=== PATIENT | female | born 1950 | race Caucasian/White ===

== ENCOUNTER → 2017-12-27 | Outpatient (CLI) | payer OTHER ==
[~2017-12-27] MED LIST: ASCO100019 PO; ASPI-496 PO; CALC-126 PO; CHOL200024 PO; CYAN1TAB52 PO; FERR325T18 PO; FISH1CAP PO; FLUT1DIS3 INH; LEVO100T PO; LISI1TAB3 PO; MULT-758 PO; NAPR220C2 PO; OMEP-110 PO; SIMV20TA3 PO; TIOT18CA INH; VITA400C43 PO; [UNRECOGNIZED DRUG - OTHER] INH
[2017-12-27 15:16] LABS: MICROSCOPIC AUTO
[2017-12-27 15:20] LABS: CULTURE INDICATED? YES
[2017-12-27 15:23] LABS: ALANINE AMINOTRANSFERASE 36 U/L (12-78); ALBUMIN 3.9 g/dL (3.4-5.0); ANION GAP 8 mmol/L (5-15); CALCIUM 9.3 mg/dL (8.5-10.1); CHLORIDE 104 mmol/L (98-107); CREATININE 0.94 mg/dL (0.55-1.02)
[2017-12-27 15:26] LABS: ALKALINE PHOSPHATASE 99 U/L (45-117); BILIRUBIN,TOTAL 0.5 mg/dL (0.2-1.0); TOTAL PROTEIN 7.5 g/dL (6.4-8.2)
[2017-12-27 15:27] LABS: BASOPHILS # (AUTO) 0.02 x10^3/uL (0-0.1); BASOPHILS % (AUTO) 0 % (0-1); EOSINOPHILS # (AUTO) 0.11 x10^3/uL (0-0.4); EOSINOPHILS % (AUTO) 2 % (1-7); LYMPHOCYTES # (AUTO) 1.92 x10^3/uL (1-3.4); LYMPHOCYTES % (AUTO) 30 % (22-44); MD NO; MEAN CORPUSCULAR HEMOGLOBIN 32.2 pg (27.0-34.8); MEAN CORPUSCULAR HGB CONC 33.7 g/dL (32.4-35.8); MEAN CORPUSCULAR VOLUME 95.4 fL (80-100); MEAN PLATELET VOLUME 8.3 fL (7.4-10.4); MONOCYTES # (AUTO) 0.37 x10^3/uL (0.2-0.8); MONOCYTES % (AUTO) 6 % (2-9); NEUTROPHILS # (AUTO) 3.91 x10^3/uL (1.8-6.8); NEUTROPHILS % (AUTO) 62 % (42-75); PLATELET COUNT 257 x10^3/uL (130-400); RED BLOOD COUNT 4.54 x10^6/uL (3.82-5.3); RED CELL DISTRIBUTION WIDTH 12.3 % (9.6-15.2)
== END | disposition home or self-care (01) ==
LOC: STAR 13:55
PROVIDERS: ATTEND Orthopaedic Surgery
DX: Z01.818 Encounter for other preprocedural examination (principal); M17.12 Unilateral primary osteoarthritis, left knee
CPT/HCPCS: 36415; 80053; 81001; 85025; 87081; 87086; 87147; 93005

== ENCOUNTER 2017-12-28 08:30 | Inpatient (IN) | payer OTHER ==
[~2017-12-28] VITALS: Ht 170.2 cm; Wt 107.3 kg
[2018-01-04] MEDS ORDERED: ROPIvacaine/PF 0.2%, 20 ML ONE ×2 (07:57→09:46)
[2018-01-04] MEDS ORDERED: NEOSTIGMINE 1 MG/ML, 10ML ONE (07:57)
[2018-01-04] MEDS ORDERED: FENTANYL PF 250 MCG/5ML ONE (07:57)
[2018-01-04] MEDS ORDERED: MIDAZOLAM 1 MG/ML, 2ML ONE (07:57)
[2018-01-04] MEDS ORDERED: CEFAZOLIN 1,000 MG ONE (07:57)
[2018-01-04] MEDS ORDERED: ROCURONIUM 10MG/ML,5ML ONE (07:57)
[2018-01-04] MEDS ORDERED: PROPOFOL 10 MG/ML, 20ML ONE (07:57)
[2018-01-04] MEDS ORDERED: DEXAMETHASONE 4 MG/ML, 1ML ONE (07:57)
[2018-01-04] MEDS ORDERED: GLYCOPYRROLATE 0.2MG/1ML, 5ML ONE (07:57)
[2018-01-04] MEDS ORDERED: ONDANSETRON 2MG/ML, 2ML ONE (07:57)
[2018-01-04] MEDS ORDERED: LACTATED RINGERS 1,000 ML IV SCH (08:36)
[2018-01-04 08:37] VITALS: BP 127/80
[2018-01-04] MEDS ORDERED: GABAPENTIN 300 MG CAPSULE PO ONE (09:00)
[2018-01-04] MEDS ORDERED: ACETAMINOPHEN 500 MG TABLET PO ONE (09:00)
[2018-01-04] MEDS ORDERED: morphine SULFATE/PF 1 MG/ML, 10ML ONE (09:46)
[2018-01-04] MEDS ORDERED: KETOROLAC 60 MG/2 ML ONE (09:46)
[2018-01-04] MEDS ORDERED: TRANEXAMIC ACID 100 MG/ML, 10ML ONE (09:46)
[2018-01-04] MEDS ORDERED: EPINEPHRINE 1 MG/ML, 1ML ONE (09:46)
[2018-01-04] MEDS ORDERED: FENTANYL PF 100 MCG/2ML IV PRN (10:00)
[2018-01-04] MEDS ORDERED: ONDANSETRON 2MG/ML, 2ML IV PRN (10:00)
[2018-01-04] MEDS ORDERED: ALBUTEROL/IPRATROPIUM 2.5MG/0.5MG, 3 ML NPPB PRN (10:00)
[2018-01-04] MEDS ORDERED: PROMETHAZINE 25 MG/ML, 1ML IM PRN ×2 (10:00)
[2018-01-04] MEDS ORDERED: HYDROmorphone 1 MG/ML, 1ML IV PRN (10:00)
[2018-01-04] MEDS ORDERED: ONDANSETRON ODT 8 MG PO PRN (10:00)
[2018-01-04] MEDS ORDERED: PROMETHAZINE 25 MG/ML, 1ML IV PRN (10:00)
[2018-01-04] MEDS ORDERED: MORPHINE SULFATE 4 MG/ML, 1ML IVPush PRN (10:00)
[2018-01-04] MEDS ORDERED: hydrALAzine 20 MG/ML, 1ML IV PRN (10:00)
[2018-01-04] MEDS ORDERED: PROMETHAZINE 12.5 MG SUPP PR PRN (10:00)
[2018-01-04] MEDS ORDERED: PROMETHAZINE 25 MG SUPP PR PRN (10:00)
[2018-01-04] MEDS ORDERED: MEPERIDINE/PF 25MG/0.5ML IVPush PRN (10:00)
[2018-01-04] MEDS ORDERED: OXYcodone 5 MG/5 ML ORAL.SOL UDC PO PRN (10:00)
[2018-01-04] MEDS ORDERED: ALBUTEROL SULFATE 2.5 MG/3 ML NPPB PRN (10:00)
[2018-01-04] MEDS ORDERED: LABETALOL 5MG/ML, 20ML IV PRN (10:00)
[2018-01-04] MEDS ORDERED: OXYcodone 5 MG/5 ML ORAL.SOL UDC ONE (12:35)
[2018-01-04 13:05] VITALS: BP 122/85
[2018-01-04] MEDS ORDERED: BISACODYL 10 MG SUPP PR PRN (13:30)
[2018-01-04] MEDS ORDERED: ALUMINUM/MAG/SIMETHICONE 30 ML UDC PO PRN (13:30)
[2018-01-04] MEDS ORDERED: SENNA/DOCUSATE TABLET PO PRN (13:30)
[2018-01-04] MEDS ORDERED: ZOLPIDEM 5MG TABLET PO PRN (13:30)
[2018-01-04] MEDS ORDERED: DIPHENHYDRAMINE 25 MG CAPSULE PO PRN (13:30)
[2018-01-04] MEDS ORDERED: ONDANSETRON 2MG/ML, 2ML IVPush PRN (13:30)
[2018-01-04] MEDS ORDERED: HYDROcodone/APAP 7.5-325MG/15ML UDC PO PRN (13:30)
[2018-01-04] MEDS ORDERED: MAGNESIUM HYDROXIDE 8%, 30ML UDC PO PRN (13:30)
[2018-01-04] MEDS: POTASSIUM CHLORIDE 10 MEQ in D5%-0.45% NACL 1,000 ML IV SCH (13:58)
[2018-01-04] MEDS: CEFAZOLIN PMX 1GM/50ML 50 ML IVPB SCH (17:55)
[2018-01-04 19:38] VITALS: BP 111/73
[2018-01-04] MEDS: DOCUSATE 100 MG CAPSULE PO SCH (20:13)
[2018-01-04] MEDS: LISINOPRIL 10 MG TABLET PO SCH (20:13)
[2018-01-04] MEDS: OXYcodone IR 5MG TABLET PO PRN (20:13)
[2018-01-04] MEDS: HYDROCHLOROTHIAZIDE 12.5 MG CAPSULE PO SCH (20:13)
[2018-01-04] MEDS: ACETAMINOPHEN 325 MG TABLET PO PRN (20:14)
[2018-01-05 00:09] VITALS: BP 102/68
[2018-01-05] MEDS: CEFAZOLIN PMX 1GM/50ML 50 ML IVPB SCH (02:26)
[2018-01-05 05:11] VITALS: BP 97/66
[2018-01-05] MEDS: OXYcodone IR 5MG TABLET PO PRN ×2 (05:40→12:06)
[2018-01-05] MEDS: ACETAMINOPHEN 325 MG TABLET PO PRN (05:40)
[2018-01-05] MEDS ORDERED: ENOXAPARIN 30 MG/0.3 ML SQ SCH (06:00)
[2018-01-05] MEDS ORDERED: LEVOTHYROXINE 100 MCG TABLET PO SCH (06:00)
[2018-01-05] MEDS ORDERED: OMEPRAZOLE 20 MG CAPSULE.DR PO SCH (06:00)
[2018-01-05 07:44] VITALS: BP 104/68
[2018-01-05] MEDS ORDERED: MULTIVITAMINS/MINERALS TABLET PO SCH (09:00)
[2018-01-05] MEDS: DOCUSATE 100 MG CAPSULE PO SCH (09:03)
[2018-01-05] MEDS: HYDROCHLOROTHIAZIDE 12.5 MG CAPSULE PO SCH (09:03)
[2018-01-05] MEDS: LISINOPRIL 10 MG TABLET PO SCH (09:03)
[2018-01-05] MEDS: POTASSIUM CHLORIDE 10 MEQ in D5%-0.45% NACL 1,000 ML IV SCH (09:04)
[2018-01-05 12:00] VITALS: BP 110/70
[2018-01-05] MEDS ORDERED: OXYC-307 PO (12:55)
[2018-01-05] MEDS ORDERED: KETOROLAC 30 MG/1 ML IV SCH (13:30)
== END 2018-01-05 13:30 | disposition home or self-care (01) | DRG 470 ==
LOC: ORIP 01-04 07:51 → 4NOR 01-04 13:00 → DCLOUNGE 01-05 13:17
PROVIDERS: ADMIT Orthopaedic Surgery; ATTEND Orthopaedic Surgery
PROC: 0SRD0J9 Replacement of Left Knee Joint with Synthetic Substitute, Cemented, Open Approach (ICD-10-PCS; principal; 2018-01-04 10:00)
DX: M17.12 Unilateral primary osteoarthritis, left knee (principal)
CPT/HCPCS: C1713; G0378; J0171; J0690; J1100; J1650; J1885; J2250; J2274; J2405; J2704; J2710; J2795; J3010; J3480; J3490; C1776; J7120